=== PATIENT | female | born 1990 | race Caucasian/White ===

== ENCOUNTER 2021-03-08 17:52 | Emergency (ER) | payer MEDICAID ==
[~2021-03-08] VITALS: Ht 180.3 cm; Wt 76.0 kg
[2021-03-08 18:04] VITALS: BP 165/105
== END 2021-03-08 19:41 | disposition home or self-care (01) ==
LOC: ER 17:53
DX: H61.899 Other specified disorders of external ear, unspecified ear (principal); F15.90 Other stimulant use, unspecified, uncomplicated
CPT/HCPCS: 99281

== ENCOUNTER 2022-12-15 13:30 | Emergency (ER) | payer MEDICAID ==
[~2022-12-15] VITALS: Ht 180.3 cm; Wt 84.1 kg
[2022-12-15 14:23] LABS: BASOPHILS % (AUTO) 0.3 % (0-1); EOSINOPHILS # (AUTO) 0.1 X10'3 (0-0.9); EOSINOPHILS % (AUTO) 0.9 % (0-6); HEMATOCRIT 42.1 % (35.0-45.0); LYMPHOCYTES # (AUTO) 0.9 X10'3 (1.1-4.8); LYMPHOCYTES % (AUTO) 8.9 % (21-51); MEAN CORPUSCULAR HEMOGLOBIN 31.4 PG (27.0-31.0); MEAN CORPUSCULAR HGB CONC 33.2 g/dL (33.0-36.5); MEAN CORPUSCULAR VOLUME 94.4 FL (78-98); MEAN PLATELET VOLUME 8.1 FL (7.4-10.4); MONOCYTES # (AUTO) 0.7 X10'3 (0-0.9); MONOCYTES % (AUTO) 6.5 % (2-12); NEUTROPHILS # (AUTO) 8.8 X10'3 (1.8-7.7); NEUTROPHILS % (AUTO) 83.4 % (42-75); PLATELET COUNT 161 X10'3 (140-440); RED BLOOD COUNT 4.46 X10'6 (4.20-5.60); RED CELL DISTRIBUTION WIDTH 14.1 % (11.5-14.5); WHITE BLOOD COUNT 10.6 X10'3 (4.5-11.0)
[2022-12-15 14:33] LABS: ALANINE AMINOTRANSFERASE 21 U/L (12-78); ALBUMIN/GLOBULIN RATIO 1.1 (1.1-1.5); ALKALINE PHOSPHATASE 63 IU/L (46-116); ANION GAP 5 (8-16); ASPARTATE AMINO TRANSFERASE 23 U/L (10-37); BILIRUBIN,TOTAL 0.6 MG/DL (0.1-1.0); BLOOD UREA NITROGEN 11 MG/DL (7-18); BUN/CREATININE RATIO 10.9 (6.6-38.0); CALCIUM 9.2 MG/DL (8.5-10.1); CHLORIDE 105 MMOL/L (99-107); CREATININE 1.01 MG/DL (0.40-0.90); LIPASE 188 U/L (73-393); POTASSIUM 3.8 MMOL/L (3.5-5.1); SODIUM 142 MMOL/L (135-145); TOTAL CARBON DIOXIDE 32.4 MMOL/L (24-32); TOTAL PROTEIN 7.8 G/DL (6.4-8.2); eGFR 63 ML/MIN
[2022-12-15 14:36] LABS: GLUCOSE 50 MG/DL (70-104)
[2022-12-15] MEDS ORDERED: normal saline 1000ml 1,000 ML IVB ONE (16:40)
[2022-12-15 17:19] LABS: URINE HCG NEGATIVE (NEG)
[2022-12-15 17:39] LABS: CLARITY,URINE SLIGHTLY CLOUDY (Clear); COLOR,URINE YELLOW (Yellow); GLUCOSE, URINE NEGATIVE (Neg); KETONES,URINE NEGATIVE (Neg); LEUKOCYTE ESTERASE ,URINE LARGE (Neg); NITRITES, URINE NEGATIVE (Neg); OCCULT BLOOD,URINE LARGE (Neg); PH,URINE 6.5 (4.8-8.0); PROTEIN,URINE TRACE mg/dl (Neg); UROBILINOGEN,URINE 0.2 E.U/dL (0.2-1.0)
[2022-12-15 17:42] LABS: UA COLLECTION TYPE CLN CATCH MIDSTREAM
[2022-12-15 17:44] LABS: BACTERIA,URINE FEW /HPF (Neg); MUCUS STRANDS FEW /LPF (Neg); RBC,URINE 20-50 /HPF (0-2); SQUAMOUS EPITHELIAL CELL,UR FEW /LPF (FEW); WBC,URINE TNTC /HPF (0-4)
[2022-12-15] MEDS ORDERED: FOSFOMYCIN TROMETHAMINE 3 GM PACKET PO ONE (18:20)
[2022-12-15] MEDS ORDERED: phenazopyridine 100mg tablet PO ONE (18:20)
[2022-12-15] MEDS ORDERED: CefTRIAXone 2gm/D5W 50ml BAG 50 ML IV ONE (18:20)
[2022-12-15] MEDS ORDERED: normal saline 1000ML IV soln IVB ONE (18:20)
[2022-12-15] MEDS ORDERED: ketorolac tromethamine 15mg/ml inj. IV ONE (18:20)
[2022-12-15] MEDS ORDERED: CEPH250T PO (18:23)
[2022-12-15 19:50] VITALS: BP 154/87
== END 2022-12-15 19:52 | disposition home or self-care (01) ==
LOC: ER 13:30
DX: N39.0 Urinary tract infection, site not specified (principal); N10 Acute pyelonephritis; J45.909 Unspecified asthma, uncomplicated; E03.9 Hypothyroidism, unspecified; F15.20 Other stimulant dependence, uncomplicated; Z90.49 Acquired absence of other specified parts of digestive tract; Z98.890 Other specified postprocedural states
CPT/HCPCS: 36415; 80053; 81001; 81025; 82948; 83690; 84145; 85025; 87077; 87088; 87186; 96361; 96365; 96375; 99284; J0696; J1885; J7030

== ENCOUNTER 2024-11-22 16:32 | Emergency (ER) | payer MEDICAID ==
[~2024-11-22] VITALS: Ht 180.3 cm; Wt 81.8 kg
[2024-11-22] MEDS: normal saline 1000ml 1,000 ML IV ONE (17:07)
[2024-11-22] MEDS: ketorolac trometh 15mg/ml vial 15 MG/ML ML IV ONE (17:07)
[2024-11-22] MEDS: metoclopramide 5 mg/ml inj IV ONE (17:08)
[2024-11-22] MEDS: SUMAtriptan succ. 6 MG/0.5ml vial SQ ONE (17:08)
[2024-11-22] MEDS: diphenhydrAMINE 50 mg/ml inj IV ONE (17:08)
[2024-11-22 19:23] VITALS: BP 142/92; PULSE 59; RESP 14; TEMP 98; O2SAT 98
== END 2024-11-22 18:47 | disposition home or self-care (01) ==
LOC: ER 16:32
DX: G43.909 Migraine, unspecified, not intractable, without status migrainosus (principal); E03.9 Hypothyroidism, unspecified; J45.909 Unspecified asthma, uncomplicated; F15.90 Other stimulant use, unspecified, uncomplicated; Z90.49 Acquired absence of other specified parts of digestive tract
CPT/HCPCS: 96361; 96372; 96374; 96375; 99284; J1200; J1885; J2765; J3030; J7030